=== PATIENT | male | born 1965 | race African-American/Black ===

== ENCOUNTER 2024-12-15 14:03 | Emergency (ER) | payer OTHER, MEDICARE ==
[2024-12-15] MEDS ORDERED: Cyclobenzaprine 10 MG TAB ONE (14:27)
[2024-12-15] MEDS ORDERED: Acetaminophen 325 MG TAB ONE (14:28)
[2024-12-15] MEDS ORDERED: HYDROcodone/Acetaminophen 5/325 mg Tablet ONE (15:02)
== END 2024-12-15 15:16 | disposition home or self-care (01) ==
LOC: CSHERS 14:03
DX: M25.512 Pain in left shoulder (principal); E11.9 Type 2 diabetes mellitus without complications; W19.XXXA Unspecified fall, initial encounter
CPT/HCPCS: 99283